=== PATIENT | female | born 1980 | race Caucasian/White ===

== ENCOUNTER → 2021-05-29 | Outpatient (REF) ==
--- NOTE | 2021-05-29 16:56 | REP ---
INDICATION: BACK PAIN. COMPARISON: None. TECHNIQUE: AP, lateral, and lateral spot radiographs of the lumbar spine are provided. FINDINGS: Lumbar vertebral body heights are preserved. Alignment is normal. Pedicles and posterior elements are intact. Sacrum and SI joints are unremarkable. Psoas margins are symmetric. There is mild discogenic spurring and disc space narrowing at L4-5. Mild discogenic spurring is present at L3-4 and at T11-12 and T12-L1 in the lower thoracic spine. IMPRESSION: Mild degenerative disc changes as noted above. No acute bony abnormality. <Electronically signed by Juice Slade > 05/29/21 [id number]
--- NOTE | 2021-05-29 16:59 | REP ---
INDICATION: BACK PAIN. COMPARISON: None. TECHNIQUE: AP and lateral views of the cervical spine are provided. FINDINGS: Cervical vertebral body heights are preserved and alignment is normal. No fracture or collapse is seen. No subluxation is observed. Disc spaces are maintained. Prevoid vertebral soft tissues are unremarkable. Intraoral jewelry is noted incidentally. On the AP radiograph spine fusion rods and transpedicle screws are noted bilaterally in the upper thoracic spine. Transpedicular screw fixation is seen in place bilaterally at T2, T3, and T4. The fusion rods extend off the field of view. IMPRESSION: Patient is status post thoracic spine fusion surgery as above. Cervical spine elements appear intact and unremarkable. <Electronically signed by Juice Slade > 05/29/21 [id number]
== END ==
LOC: M RAD 15:23
PROVIDERS: ATTEND Internal Medicine
DX: M54.5 Low back pain (principal)